=== PATIENT | male | born 1985 | race Hispanic/Latino ===

== ENCOUNTER 2017-10-07 18:59 | Emergency (ER) | payer OTHER ==
[2017-10-07] MEDS ORDERED: DEXAMETHASONE SOD PHOSPHATE 10MG/ML 1ML VIAL ONE (20:01)
[2017-10-07] MEDS ORDERED: LIDOCAINE HCL-MPF 1% 2ML VIAL ONE (20:01)
[2017-10-07] MEDS ORDERED: ACETAMINOPHEN EXTRA STRENGTH 500 MG TABLET ONE (20:01)
[2017-10-07] MEDS ORDERED: CEFTRIAXONE SODIUM 1 GM ONE (20:01)
== END 2017-10-07 21:32 | disposition home or self-care (01) ==
LOC: EDH 18:59
DX: J02.9 Acute pharyngitis, unspecified (principal)
CPT/HCPCS: 96372 ×2; 99284; J0696; J1100; J3490